=== PATIENT | male | born 1955 | race Asian ===

== ENCOUNTER 2017-07-02 08:44 | Inpatient (IN) | END 2017-09-03 17:45 | disposition home health service (06) | DRG 326 ==

== ENCOUNTER 2017-10-10 17:11 | Inpatient (IN) | END 2017-10-13 14:50 | disposition home or self-care (01) | DRG 920 ==

== ENCOUNTER 2017-11-09 06:07 | Inpatient (IN) | END 2017-11-14 17:47 | disposition home or self-care (01) | DRG 862 ==

== ENCOUNTER 2017-11-21 00:53 | Inpatient (IN) | END 2017-12-05 20:50 | disposition home health service (06) | DRG 872 ==